=== PATIENT | female | born 2000 | race Caucasian/White ===

== ENCOUNTER 2020-02-19 23:33 | Emergency (ER) | payer OTHER ==
[2020-02-20 00:01] VITALS: BP 128/67; PULSE 69; TEMP 98.1; BMI 38.7
--- NOTE | 2020-02-20 00:54 | PDOC ---
History of Present Illness - General Chief Complaint: Pain, Acute Stated Complaint: ABDOMINAL PAIN Time Seen by Provider: 02/20/20 00:02 History Source: Patient - History of Present Illness Initial Comments: 02/20/20 01:01 19-year-old female complaining of left pelvic pain for the last 3 days. And intermittent vaginal bleeding. Patient reports that she has a history of ovarian cysts unsure if the bleeding and the pain is related to it. Denies new partners or exposure to STIs. Past History - Medical History Allergies/Adverse Reactions: Allergies Allergy/AdvReac Type Severity Reaction Status Date / Time No Known Allergies Allergy Verified 02/20/20 00:00 Home Medications: Ambulatory Orders Ibuprofen 600 mg PO QID PRN #20 tablet 02/20/20 - Reproductive History Is Patient Now?: No - Psycho-Social/Smoking History Smoking History: Never smoked Have you smoked in the past 12 months: No Information on smoking cessation initiated: No - Substance Abuse Hx (Audit-C & DAST Scrn) How often the patient has a drink containing alcohol: Never Score: In Men: 4 or > Positive; In Women: 3 or > Positive: 0 Screen Result (Pos requires Nsg. Audit-10AR): Negative In the last yr the pt used illegal drug/Rx for NonMed reason: No Score: Yes response is considered Positive: 0 Screen Result (Positive result requires Nsg. DAST-10): Negative Review of Systems - Review of Systems Able to Perform ROS?: Yes Is the patient limited [place] proficient: No Constitutional: No: Symptoms Reported, See HPI, Chills, Diaphoresis, Fever, Loss of Appetite, Malaise, Night Sweats, Weakness, Weight Stable, Unintentional Wgt. Loss, Unexplained wgt Loss, Other ABD/GI: No: Symptoms Reported, See HPI, Abdominal Distended, Abd. Pain w/ defecation, Blood Streaked Bowels, Constipated, Diarrhea, Difficulty Swallowing, Nausea, Poor Appetite, Poor Fluid Intake, Rectal Bleeding, Vomiting, Indigestion, Abdominal cramping, Tarry Stools, Other : Yes: Other (pelvic pain) *Physical Exam - Vital Signs Last Vital Signs Temp Pulse Resp BP Pulse Ox 98.1 F 69 18 128/67 98 02/19/20 23:57 02/19/20 23:57 02/19/20 23:57 02/19/20 23:57 02/19/20 23:57 - Physical Exam General Appearance: Yes: Appropriately Dressed Female Pelvic Exam: positive: normal external exam, cervical os closed, adnexal tenderness (left adnexal tenderness), vaginal bleeding (minimal) Gastrointestinal/Abdominal: positive: Normal Bowel Sounds, Soft. negative: Tender Musculoskeletal: positive: Normal Inspection. negative: CVA Tenderness Extremity: positive: Normal Capillary Refill, Normal Inspection, Normal Range of Motion Integumentary: positive: Normal Color, Dry, Warm. negative: Jaundice, Mottled, Pale, Swelling, Ecchymosis, Bruising, Other Neurologic: positive: Fully Oriented, Alert, Normal Mood/Affect ED Progress Note - Progress Note Progress Note: Pelvic pain P: ua: no urinary yn trans vaginal US Discharge - Discharge Information Problems reviewed: Yes Clinical Impression/Diagnosis: Pelvic pain Condition: Fair Disposition: HOME - Additional Discharge Information Prescriptions: Ibuprofen 600 mg PO QID PRN #20 tablet PRN Reason: Pain - Follow up/Referral Referrals: Daniel Vega [Primary Care Provider] - Abe Akbar MD [Staff Physician] - Call tomorrow - Patient Discharge Instructions Patient Printed Discharge Instructions: DI for Pelvic Pain Additional Instructions: take ibuprofen every 6 hours as needed for pain follow up with a ore feeder as soon as possible - Post Discharge Activity Work/Back to School Note: Back to Work
[2020-02-20 01:57] LABS: EPI CELLS 4 /uL (0-25.1); HYALINE CASTS 5 /uL (0-3.1); PH,URINE 5.5 (5.0-8.0); URINE APPEARANCE CLEAR; URINE BACTERIA 221 /uL (0-1359); URINE BILIRUBIN NEGATIVE (NEGATIVE); URINE COLOR YELLOW; URINE GLUCOSE (UA) NEGATIVE (NEGATIVE); URINE KETONE TRACE (NEGATIVE); URINE LEUK ESTERASE TRACE (NEGATIVE); URINE NITRITE NEGATIVE (NEGATIVE); URINE PROTEIN NEGATIVE (NEGATIVE); URINE RBC 616 /uL (0-23.9); URINE WBC 121 /uL (0-25.8)
[2020-02-20 01:58] LABS: HCG,QUALITATIVE URINE Negative
[2020-02-20] MEDS ORDERED: IBUPROFEN 600 MG TABLET (FP) PO ONE ×2 (02:12→02:39)
== END 2020-02-20 02:55 | disposition home or self-care (01) ==
LOC: JER 23:33
DX: R10.2 Pelvic and perineal pain (principal)
CPT/HCPCS: 76830-TC; 81003; 84703; 99284-25